=== PATIENT | male | born 1990 | race African-American/Black ===

== ENCOUNTER 2023-06-20 12:56 | Outpatient (CLI) | payer MEDICAID ==
--- NOTE | 2023-06-20 16:50 | XRAY Report ---
PROCEDURE: Chest 2V INDICATIONS: BRONCHITIS TECHNIQUE: 2 views of the chest were acquired. COMPARISON: Chest x-ray 05/22/2015 FINDINGS: Surgical changes and devices: None. Lungs and pleura: Mild increased perihilar and pulmonary streaky opacities. Mediastinum: Mediastinal contours appear normal. Heart size is enlarged. Bones and chest wall: No suspicious bony lesions. Overlying soft tissues appear unremarkable. IMPRESSION: Perihilar and pulmonary streaky opacities. While this could represent edema, pneumonia cannot be excl uded. Reviewed by: Ya Benavides MD on 06/20/2023 4:49 PM PST Approved by: Ya Benavides MD on 06/20/2023 4:49 PM PST Station ID: [id number]
== END 2023-06-20 12:57 | disposition home or self-care (01) ==
LOC: DI 12:56
PROVIDERS: ATTEND Physician Assistant Medical
DX: J40 Bronchitis, not specified as acute or chronic (principal)

== ENCOUNTER 2023-06-28 22:18 | Emergency (ER) | payer MEDICAID, OTHER ==
--- NOTE | 2023-06-28 22:55 | ED Physician Documentation ---
PD HPI DYSPNEA - Stated complaint Stated Complaint: SOA/BODY ACHES - Chief complaint Chief Complaint: Resp - History obtained from History obtained from: Patient - Additional information Additional information: HPI from patient. Patient was seen in an outpatient clinic June 20 for shortness of breath and cough. Patient says he had an outpatient chest x-ray which demonstrated pneumonia and he was prescribed doxycycline as well as albuterol MDI and benzonatate. Patient presents at this time due to upper right parathoracic pain which woke him from sleep yesterday, has been persistent since that time. There is a distinct pleuritic component. Movement does not make any apparent difference in the pain. He had a fever earlier today to a Tmax of 100.7. He has been getting episodic improvement in his dyspnea with use of the albuterol MDI and says that his dyspnea and cough have generally been improving since starting the antibiotic. Review of Systems Constitutional: reports: Fever Respiratory: reports: Dyspnea, Cough. denies: Hemoptysis PD PAST MEDICAL HISTORY - Past Medical History Past Medical History: Yes Respiratory: Asthma - Past Surgical History Past Surgical History: Yes Ortho: Other - Present Medications Home Medications: Ambulatory Orders Medication Instructions Recorded Confirmed Albuterol [Ventolin Hfa] 2 puffs INH Q4H PRN #1 inhaler 03/04/15 06/28/23 predniSONE [Deltasone] 40 mg PO DAILY 5 Days tablet 03/04/15 Indomethacin [Indocin] 25 mg PO TID PRN #30 capsule 05/22/15 Benzonatate [Tessalon] 100 mg PO TID 06/28/23 06/28/23 Doxycycline [Vibramycin] 100 mg PO BID 06/28/23 06/28/23 HYDROcod/ACETAM 5/325 [[place] 5/325] 1 - 2 tablet PO Q6H PRN #14 tablet 06/29/23 - Allergies Allergies/Adverse Reactions: Allergies Allergy/AdvReac Type Severity Reaction Status Date / Time No Known Drug Allergies Allergy Verified 06/28/23 22:40 - Social History Does the pt smoke?: No Smoking Status: Former smoker Does the pt drink ETOH?: Yes Does the pt have substance abuse?: No - Immunizations Immunizations are current?: Yes PD ED PE NORMAL - Vitals Vital signs reviewed: Yes - General General: Alert and oriented X 3, No acute distress, Well developed/nourished - Cardiac Cardiac: RRR, No murmur - Respiratory Respiratory: No respiratory distress, Clear bilaterally - Extremities Extremities: No edema Results - Vitals Vitals: Oxygen O2 Source Room air - Labs Labs: Laboratory Tests 06/28/23 06/28/23 06/28/23 23:36 23:36 23:46 WBC 6.6 RBC 5.56 Hgb 14.5 Hct 45.5 MCV 81.8 MCH 26.1 L MCHC 31.9 L RDW 14.5 Plt Count 289 MPV 9.4 Neut # (Auto) 3.9 Lymph # (Auto) 1.7 Miller # (Auto) 0.7 Eos # (Auto) 0.2 Baso # (Auto) 0.0 Absolute Nucleated RBC 0.00 Nucleated RBC % 0.0 Sodium 135 Potassium 3.8 Chloride 100 L Carbon Dioxide 26 Anion Gap 9.0 BUN 13 Creatinine 0.8 Estimated GFR (MDRD) 134 Glucose 99 Calcium 9.5 Nasal Adenovirus (PCR) NOT DETECTED Nasal B. parapertussis DNA (PCR) NOT DETECTED Nasal Coronavir 229E PCR NOT DETECTED Nasal Coronavir HKU1 PCR NOT DETECTED Nasal Coronavir NL63 PCR NOT DETECTED Nasal Coronavir OC43 PCR NOT DETECTED Nasal Enterovir/Rhinovir PCR NOT DETECTED Nasal Influenza B PCR NOT DETECTED Nasal Influenza A PCR NOT DETECTED Nasal Parainfluen 1 PCR NOT DETECTED Nasal Parainfluen 2 PCR NOT DETECTED Nasal Parainfluen 3 PCR NOT DETECTED Nasal Parainfluen 4 PCR NOT DETECTED Nasal RSV (PCR) NOT DETECTED Nasal B.pertussis DNA PCR NOT DETECTED Nasal C.pneumoniae (PCR) NOT DETECTED Ethan Human Metapneumo PCR NOT DETECTED Nasal M.pneumoniae (PCR) NOT DETECTED Nasal SARS-CoV-2 (PCR) NOT DETECTED - Rads (name of study) CTA chest Relevant Findings:: Prelim report reviewed, See rad report PD Medical Decision Making - ED course Complexity details: reviewed results, re-evaluated patient, considered differential, d/w patient ED course: No concerning nor diagnostic findings on CBC, ER abdominal panel. Respiratory PCR panel is negative for the viruses tested on this panel. Despite clear lungs to auscultation on exam, his initial pulse ox on room air is 94%. Additionally, he has tachycardia albeit mild, heart rate 109. With these 2 vital signs, and considering his chief complaint is pleuritic thoracic pain, PERC criteria cannot be used for r/o PE and thus CTA chest undertaken. Unfortunately, the CT chest is interpreted by the radiologist as no PE but "extensive mediastinal and hilar lymphadenopathy, with confluent and infiltrative adenopathy consistent with neoplasm. Lymphoma is most likely cause". I discussed these results with patient. Without any intervention, his heart rate normalized shortly after the tachycardia was noted in triage and pulse ox improved to 95-98% room air. He is sleeping comfortably on reevaluation, awakens to voice. I emphasized to the patient the need for follow-up as soon as can be arranged. Unfortunately, he does not have a primary care provider nor insurance, and he is planning to move to [place] by the end of this coming week. Patient says that he was planning to follow-up on Friday with the walk- in clinic where he was seen recently and diagnosed with pneumonia and provided the medications noted in HPI, above. He says he was going to follow-up with them as that was their instruction. I provided him a copy of the radiologist interpretation of his CT scan and instructed him to follow-up with the walk-in group as soon as they are next open, explained the situation to them and show them the CT reading and see if expeditious evaluation can be undertaken such as referral to appropriate specialist. I am electronically prescribing a prescription for Vicodin to patient's pharmacy of choice for his chest/upper back pain. Departure - Departure Disposition: Home, Self Care Clinical Impression: Lymphadenopathy Condition: Good Instructions: ED Chest Pain Pleurisy Prescriptions: HYDROcod/ACETAM 5/325 [[place] 5/325] 1 - 2 tablet PO Q6H PRN #14 tablet PRN Reason: Pain Comments: There were no concerning nor diagnostic findings on tonight's blood tests. Unfortunately, as we discussed, there were concerning findings on the CT scan of your chest. Specifically, the radiologist sees several very enlarged lymph nodes in both sides of the chest, some of which are starting to cluster/clump together. While this does not result in a specific diagnosis at this time, the radiologist indicates that these findings are suggestive of a neoplasm (cancer), specifically lymphoma. Obviously, you most certainly need to follow-up for further testing. I again want to emphasize that the diagnosis of cancer including lymphoma cannot be made on the CT scan alone. Follow-up with your primary care provider as soon as can be arranged. I suspect that your primary care provider will refer you to a oncologist for appropriate testing. I have electronically submitted a prescription for Vicodin (opiate/narcotic pain medication) to the [facility] pharmacy in [place]. I am prescribing a short course of narcotic pain medication for you. These are potentially dangerous and addictive medications that should be used carefully. These medications may constipate you. Take an hilf-ycm-hardpvt stool softener (docusate) twice daily with plenty of water while taking these medications. If you go 24 hours without a bowel movement, take [id number]-[id number] miralax, per package instructions. Do not drink or drive while taking these medications. If you received narcotic or sedating medications while in the emergency department, do not drive for 24 hours. Store this medication in a safe, secure place and out of reach of children. It is a violation of federal law to give or sell this medication to another person or to use in a manner other than prescribed. The ED will not refill narcotic prescriptions, including prescriptions lost or stolen. To dispose of unwanted medications: 1. [facility] at [address] in [place] has a medication drop box. They accept prescription medications (in pill form) Friday through Friday 9:00 a.m. to 5:00 p.m. 2. The [facility] [employer] accepts prescription medications (in pill form only) for disposal year round. Call for more information. 3. Contact the [facility] for the next [facility] sponsored prescription drug collection event. , [phone], or [phone]; Forms: PCP List Discharge Date/Time: 06/29/23 04:18
[2023-06-28 23:41] LABS: BASOPHILS % (AUTO) 0.6 %; EOSINOPHILS # (AUTO) 0.2 10^3/uL (0.0-0.7); EOSINOPHILS % (AUTO) 3.5 %; HCT - HEMATOCRIT 45.5 % (42.0-52.0); HGB - HEMOGLOBIN 14.5 g/dL (14.0-18.0); LYMPHOCYTES # (AUTO) 1.7 10^3/uL (1.5-3.5); LYMPHOCYTES % (AUTO) 25.5 %; MEAN CORPUSCULAR HEMOGLOBIN 26.1 pg (27.0-31.0); MEAN CORPUSCULAR HGB CONC 31.9 g/dL (32.0-36.0); MEAN CORPUSCULAR VOLUME 81.8 fL (80.0-94.0); MEAN PLATELET VOLUME 9.4 fL (7.4-11.4); MONOCYTES # (AUTO) 0.7 10^3/uL (0.0-1.0); MONOCYTES % (AUTO) 10.8 %; NEUTROPHILS # (AUTO) 3.9 10^3/uL (1.5-6.6); NEUTROPHILS % (AUTO) 59.1 %; PLT - PLATELET COUNT 289 10^3/uL (130-450); RED BLOOD COUNT 5.56 10^6/uL (4.70-6.10); RED CELL DISTRIBUTION WIDTH 14.5 % (12.0-15.0); WHITE BLOOD COUNT 6.6 x10^3/uL (4.8-10.8)
[2023-06-28] MEDS ORDERED: iohexoL-300 100 ML VIAL ONE (23:57)
[2023-06-29 00:09] LABS: CALCIUM 9.5 mg/dL (8.5-10.3); CREATININE 0.8 mg/dL (0.6-1.3); POTASSIUM 3.8 mmol/L (3.5-4.5)
[2023-06-29] MEDS: iohexoL-300 100 ML VIAL IVP ONE (00:38)
[2023-06-29 00:49] LABS: B. PARAPERTUSSIS- RESP PCR PAN NOT DETECTED; B. PERTUSSIS- RESP PCR PANEL NOT DETECTED; C. PNEUMONIAE- RESP PCR PANEL NOT DETECTED; CORONAVIRUS 229E-RESP PCR NOT DETECTED; CORONAVIRUS HKU1-RESP PCR NOT DETECTED; CORONAVIRUS NL63-RESP PCR NOT DETECTED; CORONAVIRUS OC43-RESP PCR NOT DETECTED; HUMAN METAPNEUMOVIRUS NOT DETECTED; INFLUENZA A- RESP PCR PANEL NOT DETECTED; INFLUENZA B - RESP PCR PANEL NOT DETECTED; M. PNEUMONIAE- RESP PCR PANEL NOT DETECTED; PARAINFLUENZA VIRUS 1 NOT DETECTED; PARAINFLUENZA VIRUS 2 NOT DETECTED; PARAINFLUENZA VIRUS 3 NOT DETECTED; PARAINFLUENZA VIRUS 4 NOT DETECTED; RHINOVIRUS/ENTEROVIRUS NOT DETECTED; RSV- RESP PCR PANEL NOT DETECTED; SARS-CoV-2 -RESP PCR PANEL NOT DETECTED
--- NOTE | 2023-06-29 01:06 | CT Report ---
PROCEDURE: Angio Chest INDICATIONS: right-sided pleuritic chest pain, dyspnea CONTRAST: 100 ml omni 300 TECHNIQUE: After the administration of intravenous contrast, 2 mm axial images were acquired from the pulmonary apices to the posterior costophrenic angles during the arterial phase. In addition, 1 mm lung kernel and 5 mm soft tissue kernel reconstructions were performed. 3-dimensional coronal oblique maximum int ensity projection (MIP) reformats, 8 mm axial MIP, and 5 mm coronal and sagittal MPR reformats were t hen performed through the thorax. For radiation dose reduction, the following was used: automated exp osure control, adjustment of mA and/or kV according to patient size. COMPARISON: None. FINDINGS: Image quality: Excellent. Large vessels: No filling defects within the opacified pulmonary arteries, accounting for motion and contrast timing. No evidence of acute aortic syndrome or aortic aneurysm. Lungs and pleura: There is a bilateral pattern of patchy mild alveolar airspace consolidation and adj acent mediastinal and hilar adenopathy.. No pleural effusions. No pneumothorax. No suspicious pulmon lizbeth nodules which require follow up. Mediastinum: Heart size is normal. No pericardial effusion. No large vessel abnormality. Extensive me diastinal adenopathy by size criteria, confluent, involving the upper, middle and lower thirds of the mediastinum and extending into the hilar. Vasculature spaces. Chest wall and lower neck: Thyroid is unremarkable. No axillary or supraclavicular adenopathy by size . Bones: No aggressive osseous abnormality. Upper Abdomen: Unremarkable. IMPRESSION: No pulmonary embolus. Extensive mediastinal and hilar adenopathy, with confluent and infiltrative adenopathy consistent wit h neoplasm. Lymphoma is the most likely cause. Reviewed by: Fabian Raymond MD on 06/29/2023 1:05 AM PST Approved by: Fabian Raymond MD on 06/29/2023 1:05 AM PST Station ID: [id number]
[2023-06-29] MEDS: HYDROcod/ACET 5/325 Prepack 4 PO STA (04:11)
[2023-06-29 04:13] VITALS: BP 119/87; O2SAT 95
== END 2023-06-29 04:18 | disposition home or self-care (01) ==
LOC: ED 22:18
DX: R59.1 Generalized enlarged lymph nodes (principal)
CPT/HCPCS: 36415; 71275; 80048; 85025; 87633; 99284; Q9967

== ENCOUNTER 2023-07-01 23:43 | Emergency (ER) | payer MEDICAID, OTHER ==
--- NOTE | 2023-07-02 | ED Physician Documentation ---
PD HPI URI - Stated complaint Stated Complaint: COUGH/SOA - Chief complaint Chief Complaint: Resp - History obtained from History obtained from: Patient - Additional information Additional information: 33-year-old male with history of asthma presents by private vehicle from home for persistent coughing. Patient was seen on 06/28/2023 for chest pain and a cough. He underwent workup including labs, CT angio, respiratory panel. Laboratory work and respiratory panel were unremarkable, however CT angio at that time noticed incidental extensive lymphadenopathy concerning for possible lymphoma. Patient was discharged with pain medications, which she has been taking, however his cough is persistent, aggravating, and causing him to be short of breath. He states that he has noticed tinges of what appears to be blood in his sputum and has a wheeze when he takes a deep breath. He has been using his albuterol inhaler without relief. Review of Systems Constitutional: denies: Fever, Chills Cardiac: reports: Chest pain / pressure. denies: Palpitations, Calf pain Respiratory: reports: Dyspnea, Cough, Wheezing GI: denies: Abdominal Pain, Nausea, Vomiting : denies: Dysuria, Frequency, Hesitancy Skin: denies: Rash, Lesions, Abrasion (s) Musculoskeletal: denies: Neck pain, Back pain, Extremity pain Neurologic: denies: Generalized weakness, Focal weakness, Numbness PD PAST MEDICAL HISTORY - Past Medical History Respiratory: Asthma - Past Surgical History Past Surgical History: Yes Ortho: Other - Present Medications Home Medications: Ambulatory Orders Medication Instructions Recorded Confirmed Albuterol [Ventolin Hfa] 2 puffs INH Q4H PRN #1 inhaler 03/04/15 07/01/23 Benzonatate [Tessalon] 100 mg PO TID 06/28/23 07/01/23 HYDROcod/ACETAM 5/325 [[place] 5/325] 1 - 2 tablet PO Q6H PRN #14 tablet 06/29/23 07/01/23 Amox/Clav 875/125 [Augmentin 1 tablet PO Q12H 5 Days #10 tablet 07/02/23 875/125 Tab] Doxycycline Hyclate 100 mg PO BID #10 cap 07/02/23 Hydrocodone Bit/Homatrop Me-Br 5 ml PO Q6H PRN #200 ml 07/02/23 [Hycodan 5 mg-1.5 mg/5 ml Soln] methylPREDNISolone [Medrol Dose 1 each PO .PACKAGEINSTRUCTIONS 6 07/02/23 Pack] Days #1 each - Allergies Allergies/Adverse Reactions: Allergies Allergy/AdvReac Type Severity Reaction Status Date / Time No Known Drug Allergies Allergy Verified 07/01/23 23:54 - Social History Does the pt smoke?: No Smoking Status: Never smoker Does the pt drink ETOH?: Yes Does the pt have substance abuse?: No - Immunizations Immunizations are current?: Yes PD ED PE NORMAL - Vitals Vital signs reviewed: Yes - General General: Alert and oriented X 3, No acute distress - Cardiac Cardiac: RRR, Strong equal pulses - Respiratory Respiratory: No respiratory distress, Other (frequent nonproductive coughing, inspiratory and expiratory wheezes on pulmonary exam) - Abdomen Abdomen: Soft, Non tender, Non distended - Derm Derm: Normal color, Warm and dry, No rash - Neuro Neuro: Alert and oriented X 3, email campaign manager 2-12 intact, No motor deficit, Normal speech - Psych Psych: Normal mood, Normal affect Results - Vitals Vitals: Vital Signs - 24 hr 07/01/23 07/02/23 07/02/23 23:48 00:09 00:20 Temperature 37.2 C Heart Rate 94 94 Respiratory 26 H 24 Rate Blood Pressure 152/95 H O2 Saturation 97 07/02/23 01:34 Temperature Heart Rate 90 Respiratory 16 Rate Blood Pressure 138/99 H O2 Saturation 94 Oxygen O2 Source Room air PD Medical Decision Making - ED course Complexity details: reviewed results, re-evaluated patient, considered differential, d/w patient ED course: Patient presenting for persistent cough. He was seen several days ago for same complaint and underwent comprehensive workup at that time. He states he is here today because of the persistent cough and now wheezing. He continues to endorse chest pain and now stating abdominal pain from the force of his coughing. Patient recently underwent CT angio that did not show any pulmonary embolism, but since patient's symptoms are not different from previous visit do not plan to repeat CT at this time. Will order nebulizers and steroids due to the patient's wheezing, chest x-ray to assess for resolution of pneumonia or to see if there is an any change since previous visit, and will reassess. Patient received nebulizers, steroids, now resting comfortably with noticeable improvement in patient's cough. He states that he feels much better and almost like a new person. Oxygen saturations 96 to 97% on room air. chest x-ray does show residual infiltrate on the right-hand side. Patient informed of imaging findings. Plan to continue antibiotics for several additional days. Will continue doxycycline and will add Augmentin. Due to patient's asthma and wheezing will also discharge with steroid taper. Patient states that the Tessalon Perles did nothing to suppress his cough, so plan to send short course of Hycodan syrup to pharmacy of choice. Patient inquired about referral to oncology in the area, referral placed in computer to Dr. Feliciano at the [facility]. Strict ED return precautions discussed at bedside. Departure - Departure Disposition: Home, Self Care Clinical Impression: Pneumonia Qualifiers: Pneumonia type: due to unspecified organism Laterality: right Lung location: lower lobe of lung Qualified Code(s): J18.9 - Pneumonia, unspecified organism Asthma Qualifiers: Asthma severity: mild Asthma persistence: intermittent Asthma complication type: with acute exacerbation Qualified Code(s): J45.21 - Mild intermittent asthma with (acute) exacerbation Condition: Stable Instructions: Asthma Dc, ED Pneumonia Adult Follow-Up: Lida Feliciano MD [Provider Admit Priv/Credential] - Prescriptions: Amox/Clav 875/125 [Augmentin 875/125 Tab] 1 tablet PO Q12H 5 Days #10 tablet Doxycycline Hyclate 100 mg PO BID #10 cap Hydrocodone Bit/Homatrop Me-Br [Hycodan 5 mg-1.5 mg/5 ml Soln] 5 ml PO Q6H PRN #200 ml PRN Reason: Cough methylPREDNISolone [Medrol Dose Pack] 1 each PO .PACKAGEINSTRUCTIONS 6 Days #1 each Forms: PCP List Discharge Date/Time: 07/02/23 01:40
[2023-07-02] MEDS: IPRATROPIUM/ALBUTEROL 3 ML NEB INH STA (00:20)
[2023-07-02] MEDS: DEXAMETHASONE 10 MG/ML VIAL PO STA (00:27)
[2023-07-02] MEDS: CHERRY SYRUP 10 ML UDC PO ONE (00:27)
--- NOTE | 2023-07-02 00:27 | XRAY Report ---
PROCEDURE: Chest 1V INDICATIONS: WORSENING COUGH TECHNIQUE: One view of the chest was acquired. COMPARISON: CT angiogram of the chest dated 06/29/2023 and chest radiograph dated 06/20/2023 FINDINGS: Surgical changes and devices: None. Lungs and pleura: Diffuse interstitial prominence. Persistent patchy airspace opacities of the left perihilar region as well as the right mid and lower lung zones. Perihilar airway thickening. No new f ocal consolidation seen. No pneumothorax. Very small right pleural effusion suspected. Mediastinum: Mediastinal contours appear stable with prominent mediastinal contours which correlate with mediastinal adenopathy seen on comparison CT. Heart size is stable. Bones and chest wall: No suspicious bony lesions. Overlying soft tissues appear unremarkable. IMPRESSION: Persistent diffuse interstitial prominence, perihilar airway thickening, and patchy airspace opacitie s of the left perihilar, right mid and lower lung zones compatible with airspace opacities seen on co mparison CT. Prominent mediastinal contours compatible with mediastinal adenopathy seen on comparison CT. Accounting for differences in imaging technique, no significant interval change. No new focal ai rspace opacities. Very small right pleural effusion. Reviewed by: Rei Grayson MD on 07/02/2023 12:26 AM PST Approved by: Rei Grayson MD on 07/02/2023 12:26 AM PST Station ID: [id number]
[2023-07-02 01:40] VITALS: BP 138/99; O2SAT 94
== END 2023-07-02 01:40 | disposition home or self-care (01) ==
LOC: ED 23:43
DX: J18.9 Pneumonia, unspecified organism (principal); J45.21 Mild intermittent asthma with (acute) exacerbation; Z79.899 Other long term (current) drug therapy
CPT/HCPCS: 71045; 94640; 94664; 99283; 99284; A9270

== ENCOUNTER 2023-07-17 10:19 | Outpatient (CLI) | payer OTHER | END 2023-07-17 10:20 | disposition critical access hospital (66) | LOC: EMS 10:19 | DX: R06.00 Dyspnea, unspecified (principal) | CPT/HCPCS: A0425; A0427 ==

== ENCOUNTER 2023-07-17 10:36 | Emergency (ER) | payer OTHER ==
[2023-07-17 11:32] LABS: BASOPHILS % (AUTO) 0.4 %; EOSINOPHILS # (AUTO) 0.4 10^3/uL (0.0-0.7); EOSINOPHILS % (AUTO) 4.6 %; HCT - HEMATOCRIT 42.7 % (42.0-52.0); HGB - HEMOGLOBIN 13.3 g/dL (14.0-18.0); LYMPHOCYTES # (AUTO) 1.8 10^3/uL (1.5-3.5); LYMPHOCYTES % (AUTO) 19.4 %; MEAN CORPUSCULAR HEMOGLOBIN 25.4 pg (27.0-31.0); MEAN CORPUSCULAR HGB CONC 31.1 g/dL (32.0-36.0); MEAN CORPUSCULAR VOLUME 81.6 fL (80.0-94.0); MEAN PLATELET VOLUME 9.1 fL (7.4-11.4); MONOCYTES # (AUTO) 0.8 10^3/uL (0.0-1.0); MONOCYTES % (AUTO) 8.9 %; NEUTROPHILS # (AUTO) 6.3 10^3/uL (1.5-6.6); NEUTROPHILS % (AUTO) 66.4 %; PLT - PLATELET COUNT 270 10^3/uL (130-450); RED BLOOD COUNT 5.23 10^6/uL (4.70-6.10); RED CELL DISTRIBUTION WIDTH 14.8 % (12.0-15.0); WHITE BLOOD COUNT 9.5 x10^3/uL (4.8-10.8)
--- NOTE | 2023-07-17 11:40 | XRAY Report ---
PROCEDURE: Chest 1V INDICATIONS: SOA TECHNIQUE: One view of the chest was acquired. COMPARISON: 07/02/2023. FINDINGS: Surgical changes and devices: None. Lungs and pleura: No significant pleural effusions or pneumothorax. Persistent opacities in the righ t mid-lower lung field which appear mildly more prominent compared to prior. Diffuse interstitial pro minence.. Mediastinum: Prominence of the perihilar regions, consistent with adenopathy seen on prior CT.. Hea rt size is normal. Bones and chest wall: No suspicious bony lesions. Overlying soft tissues appear unremarkable. IMPRESSION: Persistent opacities within the right mid and lower lung cobb which appears mildly more prominent c ompared to prior. Diffuse interstitial prominence is noted. Prominence of the perihilar regions is ag ain noted and similar to prior, consistent with adenopathy as seen on prior CT Reviewed by: Ayo Omer MD on 07/17/2023 11:39 AM PST Approved by: Ayo Omer MD on 07/17/2023 11:39 AM PST Station ID: [id number]
[2023-07-17 11:48] LABS: ALBUMIN 4.1 g/dL (3.2-5.5); ALBUMIN/GLOBULIN RATIO 1.3 (1.0-2.2); BILIRUBIN,TOTAL 0.6 mg/dL (0.2-1.0); CALCIUM 9.6 mg/dL (8.5-10.3); CREATININE 0.9 mg/dL (0.6-1.3); POTASSIUM 4.1 mmol/L (3.5-4.5); TOTAL PROTEIN 7.3 g/dL (6.4-8.9)
[2023-07-17] MEDS: IPRATROPIUM/ALBUTEROL 3 ML NEB INH STA (12:00)
[2023-07-17] MEDS ORDERED: iohexoL-300 100 ML VIAL ONE (12:11)
--- NOTE | 2023-07-17 12:14 | ED Physician Documentation ---
PD HPI DYSPNEA - Stated complaint Stated Complaint: SOA - Chief complaint Chief Complaint: Resp - History obtained from History obtained from: Patient - Additional information Additional information: Patient is a 33-year-old male presenting for evaluation of productive cough and feeling short of air since Friday night. Patient states that he had several ED visits due to similar symptoms and that completed a few courses of antibiotics along with a course of prednisone and albuterol. He states that recently he had been doing well and was playing basketball even twice a week on Sundays and Tuesdays but started feeling ill again on Friday night. He is currently being evaluated for lymphoma and has a scheduled biopsy on Friday. Patient states that his cough is productive of green sputum with occasional blood streaking. He also reports coughing up what appears to be like tissue. No reported fevers. Child at home was ill with the flu last week. Has not tried any medications for his symptoms today. Patient was at work at the [employer] when he started feeling more short of breath and requested EMS to be called. Reports occasional chest pain associated with the cough. No abdominal symptoms. No leg swelling or pain. Does not take a blood thinner. Review of Systems Constitutional: denies: Fever Cardiac: reports: Chest pain / pressure Respiratory: reports: Dyspnea, Cough GI: denies: Abdominal Pain, Vomiting Musculoskeletal: denies: Extremity swelling PD PAST MEDICAL HISTORY - Past Medical History Respiratory: Asthma - Past Surgical History Past Surgical History: Yes Ortho: Other - Present Medications Home Medications: Ambulatory Orders Medication Instructions Recorded Confirmed Albuterol [Ventolin Hfa] 2 puffs INH Q4H PRN #1 inhaler 03/04/15 07/17/23 Hydrocodone Bit/Homatrop Me-Br 5 ml PO Q6H PRN #200 ml 07/02/23 07/17/23 [Hycodan 5 mg-1.5 mg/5 ml Soln] Albuterol 2.5 mg INH Q4H PRN #30 ml 07/17/23 Albuterol Sulf [Ventolin Hfa 1 - 2 puffs INH Q4HR PRN #1 each 07/17/23 Inhaler] Amox/Clav 875/125 [Augmentin] 1 each PO Q12H #20 tablet 07/17/23 Azithromycin [Zithromax] 1 tab PO DAILY #6 tablet 07/17/23 Nebulizer 1 each MC PRN PRN #1 ea 07/17/23 Nebulizer Accessories [Adult 1 each PRN PRN #1 each 07/17/23 Aerosol Mask] predniSONE [Deltasone] 60 mg PO DAILY 4 Days #12 tablet 07/17/23 - Allergies Allergies/Adverse Reactions: Allergies Allergy/AdvReac Type Severity Reaction Status Date / Time No Known Drug Allergies Allergy Verified 07/17/23 10:43 - Social History Does the pt smoke?: No Smoking Status: Never smoker Does the pt drink ETOH?: Yes Does the pt have substance abuse?: No - Immunizations Immunizations are current?: Yes PD ED PE NORMAL - General General: Alert and oriented X 3, No acute distress, Well developed/nourished - HEENT HEENT: Atraumatic, Moist mucous membranes, Pharynx benign - Neck Neck: Supple, no meningeal sign - Cardiac Cardiac: RRR, Strong equal pulses - Respiratory Respiratory: No respiratory distress, Other (Mild expiratory wheeze, left grea ter than right) - Abdomen Abdomen: Normal bowel sounds, Soft, Non tender, Non distended - Derm Derm: Warm and dry - Extremities Extremities: No edema, No calf tenderness / cord - Neuro Neuro: Normal speech Results - Vitals Vitals: Vital Signs - 24 hr 07/17/23 07/17/23 07/17/23 10:36 11:25 12:03 Temperature 36.8 C Heart Rate 108 H 84 Respiratory 16 17 16 Rate Blood Pressure 148/80 H O2 Saturation 100 07/17/23 07/17/23 07/17/23 13:16 15:12 15:14 Temperature Heart Rate 90 82 82 Respiratory 17 16 17 Rate Blood Pressure 142/74 H O2 Saturation 95 100 Oxygen O2 Source Room air - EKG (time done) 1135 EKG releavant findings:: EKG personally interpreted by author of this note. Relevant findings are: Rate 89, normal sinus rhythm, no STEMI, no significant ST depressions - Labs Labs: Laboratory Tests 07/17/23 07/17/23 07/17/23 11:27 11:27 11:27 WBC 9.5 RBC 5.23 Hgb 13.3 L Hct 42.7 MCV 81.6 MCH 25.4 L MCHC 31.1 L RDW 14.8 Plt Count 270 MPV 9.1 Neut # (Auto) 6.3 Lymph # (Auto) 1.8 Roberts # (Auto) 0.8 Eos # (Auto) 0.4 Baso # (Auto) 0.0 Absolute Nucleated RBC 0.00 Nucleated RBC % 0.0 D-Dimer 1044.5 H Sodium 138 Potassium 4.1 Chloride 104 Carbon Dioxide 29 Anion Gap 5.0 L BUN 10 Creatinine 0.9 Estimated GFR (MDRD) 117 Glucose 110 H Calcium 9.6 Total Bilirubin 0.6 AST 34 ALT 51 Alkaline Phosphatase 81 Troponin I High Sens Total Protein 7.3 Albumin 4.1 Globulin 3.2 Albumin/Globulin Ratio 1.3 Nasal Adenovirus (PCR) Nasal B. parapertussis DNA (PCR) Nasal Coronavir 229E PCR Nasal Coronavir HKU1 PCR Nasal Coronavir NL63 PCR Nasal Coronavir OC43 PCR Nasal Enterovir/Rhinovir PCR Nasal Influenza B PCR Nasal Influenza A PCR Nasal Parainfluen 1 PCR Nasal Parainfluen 2 PCR Nasal Parainfluen 3 PCR Nasal Parainfluen 4 PCR Nasal RSV (PCR) Nasal B.pertussis DNA PCR Nasal C.pneumoniae (PCR) Ethan Human Metapneumo PCR Nasal M.pneumoniae (PCR) Nasal SARS-CoV-2 (PCR) 07/17/23 07/17/23 11:27 11:50 WBC RBC Hgb Hct MCV MCH MCHC RDW Plt Count MPV Neut # (Auto) Lymph # (Auto) Roberts # (Auto) Eos # (Auto) Baso # (Auto) Absolute Nucleated RBC Nucleated RBC % D-Dimer Sodium Potassium Chloride Carbon Dioxide Anion Gap BUN Creatinine Estimated GFR (MDRD) Glucose Calcium Total Bilirubin AST ALT Alkaline Phosphatase Troponin I High Sens 12.4 Total Protein Albumin Globulin Albumin/Globulin Ratio Nasal Adenovirus (PCR) NOT DETECTED Nasal B. parapertussis DNA (PCR) NOT DETECTED Nasal Coronavir 229E PCR NOT DETECTED Nasal Coronavir HKU1 PCR NOT DETECTED Nasal Coronavir NL63 PCR NOT DETECTED Nasal Coronavir OC43 PCR NOT DETECTED Nasal Enterovir/Rhinovir PCR NOT DETECTED Nasal Influenza B PCR NOT DETECTED Nasal Influenza A PCR NOT DETECTED Nasal Parainfluen 1 PCR NOT DETECTED Nasal Parainfluen 2 PCR NOT DETECTED Nasal Parainfluen 3 PCR NOT DETECTED Nasal Parainfluen 4 PCR NOT DETECTED Nasal RSV (PCR) NOT DETECTED Nasal B.pertussis DNA PCR NOT DETECTED Nasal C.pneumoniae (PCR) NOT DETECTED Ethan Human Metapneumo PCR NOT DETECTED Nasal M.pneumoniae (PCR) NOT DETECTED Nasal SARS-CoV-2 (PCR) NOT DETECTED PD Medical Decision Making - ED course Complexity details: reviewed results, re-evaluated patient, d/w patient, d/w family ED course: Pt is a 33 yo M with SOA - recent findings concerning for lymphoma, awaiting biopsy in 1 week. Initially tachycardic, wheezing. Recent productive cough with some blood. Labs including CBC, chemistries, ddimer, troponin reviewed. Ddimer elevated. Chest XR with R lower infiltrate worse than prior. EKG non ischemic. breathing better here after 2 nebs and PO prednisone. Respiratory swab negative. CTA ordered and result pending at time of shift change. Signed out to Dr. Dixon. Plan for PO antibiotics for pneumonia given symptoms and Chest XR result s - will cover with augmentin and azithromycin as pt seems to be higher risk with asthma as well as likely neoplastic process. Departure - Departure Disposition: 01 Home, Self Care Clinical Impression: Pneumonia, Asthma exacerbation Condition: Good Instructions: ED Bronchitis Asthmatic, ED Pneumonia Adult Prescriptions: Albuterol Sulf [Ventolin Hfa Inhaler] 1 - 2 puffs INH Q4HR PRN #1 each PRN Reason: Shortness Of Air/Wheezing Nebulizer Accessories [Adult Aerosol Mask] 1 each MC PRN PRN #1 each PRN Reason: Wheezing Albuterol 2.5 mg INH Q4H PRN #30 ml PRN Reason: Wheezing Amox/Clav 875/125 [Augmentin] 1 each PO Q12H #20 tablet predniSONE [Deltasone] 60 mg PO DAILY 4 Days #12 tablet Nebulizer 1 each MC PRN PRN #1 ea PRN Reason: Wheezing Azithromycin [Zithromax] 1 tab PO DAILY #6 tablet Comments: Your CT scan does not show any blood clot, but you do have some pneumonia that you will be treated for. I have sent prescriptions for 2 antibiotics as well as albuterol both inhaler as well as the nebulizer solution to [facility] pharmacy.I have asked for the images for your CAT scan to be sent to [facility] and would recommend you reach out to the doctor doing your biopsy next week to go over your CAT scan to see if they want a hold on your biopsy on Friday or If it is okay to proceed as scheduled. Return to the ER with any worsening. Forms: PCP List, Activity restrictions
[2023-07-17 13:11] LABS: B. PARAPERTUSSIS- RESP PCR PAN NOT DETECTED; B. PERTUSSIS- RESP PCR PANEL NOT DETECTED; C. PNEUMONIAE- RESP PCR PANEL NOT DETECTED; CORONAVIRUS 229E-RESP PCR NOT DETECTED; CORONAVIRUS HKU1-RESP PCR NOT DETECTED; CORONAVIRUS NL63-RESP PCR NOT DETECTED; CORONAVIRUS OC43-RESP PCR NOT DETECTED; HUMAN METAPNEUMOVIRUS NOT DETECTED; INFLUENZA A- RESP PCR PANEL NOT DETECTED; INFLUENZA B - RESP PCR PANEL NOT DETECTED; M. PNEUMONIAE- RESP PCR PANEL NOT DETECTED; PARAINFLUENZA VIRUS 1 NOT DETECTED; PARAINFLUENZA VIRUS 2 NOT DETECTED; PARAINFLUENZA VIRUS 3 NOT DETECTED; PARAINFLUENZA VIRUS 4 NOT DETECTED; RHINOVIRUS/ENTEROVIRUS NOT DETECTED; RSV- RESP PCR PANEL NOT DETECTED; SARS-CoV-2 -RESP PCR PANEL NOT DETECTED
[2023-07-17] MEDS: predniSONE 20 MG TABLET PO STA (14:18)
[2023-07-17] MEDS: ALBUTEROL NEB 2.5 MG/3 ML INH STA (15:12)
[2023-07-17] MEDS: iohexoL-300 100 ML VIAL IVP ONE (15:38)
--- NOTE | 2023-07-17 16:59 | CT Report ---
PROCEDURE: CT chest angiogram INDICATIONS: SOA/CP/blood streak sputum/ TECHNIQUE: Helical axial CT of the chest was obtained during the angiographic phase of an intravenou s contrast injection. Multiplanar and MIP reformats utilized. Radiation dose reduction was achieved u tilizing automated exposure control or adjustment of mA and/or kV according to patient size. COMPARISON: 06/29/2023 FINDINGS: Image quality: Study is limited by bolus timing Vasculature: No evidence of central pulmonary embolism, aortic dissection or aneurysm. Lungs and pleura: Patchy bilateral pulmonary infiltrates have improved in prior exam Mediastinum: Heart size is normal. No pericardial effusion. No large vessel abnormality. Bulky the sp inal and bilateral hilar adenopathy is stable from the prior exam Chest wall and lower neck: Thyroid is unremarkable. No axillary or supraclavicular adenopathy by size . Bones: No aggressive osseous abnormality. Upper Abdomen: Unremarkable. IMPRESSION: Study is limited by bolus timing, but no evidence of central pulmonary embolism, aortic dissection or aneurysm. Bulky mediastinal and bilateral hilar adenopathy consistent with lymphoproliferative neoplasm Patchy bilateral pulmonary infiltrates improved from the prior Reviewed by: Sky Hernández MD on 07/17/2023 3:58 PM AKST Approved by: Sky Hernández MD on 07/17/2023 3:58 PM AKST Station ID: [id number]
--- NOTE | 2023-07-17 17:14 | ED Physician Documentation ---
ED Addendum - Addendum Addendum: 07/17/23 17:12 The patient was chest signed out to me at change of shift by Dr. Fitch, pending final report on CT scan of the chest with angiography, after presenting with dyspnea on exertion. The patient had been found to have what appeared to be pneumonia on the chest x-ray and noted to have the same on CTA. There was no blood clot. The patient was already scheduled to follow-up for lymph node biopsy for lymphadenopathy in his chest and CT images have been pushed to the facility for the patient specialist to view. No emergent consultation is indicated today. The patient has been prescribed antibiotics and is advised to follow-up as planned. We have discussed the usual indications for follow-up and return. Final impression: See original note Disposition: Home in stable and improved condition.
[2023-07-17 17:22] VITALS: O2SAT 96
[2023-07-17 17:32] VITALS: BP 160/78
== END 2023-07-17 17:30 | disposition home or self-care (01) ==
LOC: EDUNIT# → ED 10:36
DX: J18.9 Pneumonia, unspecified organism (principal); J45.901 Unspecified asthma with (acute) exacerbation; Z11.52 Encounter for screening for COVID-19
CPT/HCPCS: 36415; 71045; 71275; 80053; 84484; 85025; 85379; 87633; 93005; 94640; 94664; 99284; J7512; Q9967

== ENCOUNTER 2023-12-12 08:00 | Outpatient (CLI) | payer OTHER | END 2023-12-12 23:59 | disposition home or self-care (01) | LOC: LAB.N 08:00 | PROVIDERS: ATTEND Physician Assistant Medical | DX: T81.31XA Disruption of external operation (surgical) wound, not elsewhere classified, initial encounter (principal) | CPT/HCPCS: 87070; 87077; 87181; 87205 ==